=== PATIENT | female | born 1955 | race Hispanic/Latino ===

== ENCOUNTER → 2024-04-13 | Outpatient (CLI) | payer OTHER ==
[2024-04-13 16:49] LABS: ALBUMIN 3.9 g/dL (3.5-5.0); BILIRUBIN,TOTAL 0.2 mg/dL (0.2-1.0); CREATININE 0.7 mg/dL (0.5-1.0); TOTAL PROTEIN, SERUM 7.9 g/dL (6.0-8.3)
== END | disposition home or self-care (01) ==
LOC: LAB 15:40
PROVIDERS: ATTEND Student in an Organized Health Care Education/Training Program
DX: Z01.812 Encounter for preprocedural laboratory examination (principal); I10 Essential (primary) hypertension
CPT/HCPCS: 36415; 80053

== ENCOUNTER → 2024-04-17 | Outpatient (CLI) | payer OTHER, MEDICARE ==
[~2024-04-17] MED LIST: IOHEXOL 350 MG/ML 100ML INFUS..BTL IV ONE; metoPROLOL tartRATE 1 MG/ML 5ML VIAL IV ONE
== END | disposition home or self-care (01) ==
LOC: RAH 09:05
PROVIDERS: ATTEND Student in an Organized Health Care Education/Training Program
DX: I25.10 Atherosclerotic heart disease of native coronary artery without angina pectoris (principal); M47.815 Spondylosis without myelopathy or radiculopathy, thoracolumbar region; R07.9 Chest pain, unspecified
CPT/HCPCS: 75574; J3490; Q9967

== ENCOUNTER → 2024-04-18 | Outpatient (CLI) | payer OTHER, MEDICARE | END | disposition home or self-care (01) | LOC: SHCH 08:50 | PROVIDERS: ATTEND Student in an Organized Health Care Education/Training Program | DX: I73.9 Peripheral vascular disease, unspecified (principal) | CPT/HCPCS: 93925 ==

== ENCOUNTER → 2024-05-11 | Outpatient (CLI) | payer OTHER, MEDICARE | END | disposition home or self-care (01) | LOC: SHCH 14:52 | PROVIDERS: ATTEND Student in an Organized Health Care Education/Training Program | DX: R06.09 Other forms of dyspnea (principal); I25.10 Atherosclerotic heart disease of native coronary artery without angina pectoris | CPT/HCPCS: 93306 ==

== ENCOUNTER 2024-05-28 05:48 | Day surgery (SDC) | payer OTHER, MEDICARE ==
[2024-05-26 10:28] LABS: BASOPHILS # (AUTO) 0.09 K/uL (0.00-0.20); BASOPHILS % (AUTO) 0.9 % (0.0-5.0); EOSINOPHILS # (AUTO) 0.17 K/uL (0.00-0.70); EOSINOPHILS % (AUTO) 1.8 % (0.0-8.0); HEMATOCRIT 37.7 % (36-48); IMMATURE GRANULOCYTE ABSOLUTE 0.03 K/uL (0-1); LYMPHOCYTES # (AUTO) 2.9 K/uL (1.0-4.8); LYMPHOCYTES % (AUTO) 29.9 % (21.0-51.0); MEAN CORPUSCULAR HEMOGLOBIN 23.3 pg (27.0-33.0); MEAN CORPUSCULAR HGB CONC 30.5 g/dL (32.0-36.0); MEAN CORPUSCULAR VOLUME 76.3 fL (79-99); MONOCYTES # (AUTO) 0.6 K/uL (0.1-1.0); MONOCYTES % (AUTO) 5.9 % (3.0-13.0); NEUTROPHILS # (AUTO) 5.8 K/uL (1.8-7.7); NEUTROPHILS % (AUTO) 61.2 % (40.0-77.0); PLATELET COUNT (AUTO) 238 K/uL (130-400); RED BLOOD CELL COUNT(AUTO) 4.94 MIL/uL (4.00-5.50); RED CELL DISTRIBUTION WIDTH 15.8 % (11.0-15.5); WHITE BLOOD COUNT (AUTO) 9.5 K/uL (4.8-10.8)
[2024-05-26 10:38] LABS: INR 0.99 (0.85-1.15); PROTHROMBIN TIME 10.7 SEC (9.6-11.6)
[2024-05-26 10:39] LABS: PARTIAL THROMBOPLASTIN TIME 25.2 SEC (26.3-35.5)
[2024-05-26 10:40] LABS: CREATININE 0.6 mg/dL (0.5-1.0); POTASSIUM 4.2 mmol/L (3.5-5.1)
[2024-05-26 10:46] VITALS: BP 194/78; PULSE 98; RESP 18; TEMP 97.7
--- NOTE | 2024-05-26 11:10 | EKG ---
[facility] Test Date: 2024-05-26 Test Time: 11:01:59 Pat Name: MIGUE RUIZ Department: [facility] Room: [facility] Gender: F Public Relations Coordinator: [id number] : 1955 Requested By: TYRELL SOTO Order Number: [id number] Reading MD: Adelaida Soto Measurements Intervals [place] Rate: 92 P: 52 TX: 178 QRS: 47 QRSD: 94 T: 12 QT: 386 QTc: 479 Interpretive Statements Sinus rhythm Atrial premature complexes Low voltage, precordial leads No previous ECG available for comparison Electronically Signed On 05-28-2024 17:34:12 ASSISTANT ELEMENTARY TEACHER by Adelaida Soto Please click the below link to view image of tracing.
[2024-05-26 11:25] LABS: ADD UA MICROSCOPIC YES; APPEARANCE,URINE CLEAR (CLEAR); BILIRUBIN,URINE NEGATIVE (NEGATIVE); COLOR,URINE LIGHT-YELLOW (YELLOW); GLUCOSE, URINE (UA) >=1000 mg/dL (NEGATIVE); KETONES,URINE NEGATIVE (NEGATIVE); LEUKOCYTE ESTERASE ,URINE NEGATIVE Leu/uL (NEGATIVE); NITRATE,URINE NEGATIVE (NEGATIVE); OCCULT BLOOD,URINE NEGATIVE (NEGATIVE); PH,URINE 5.5 (5.0-8.0); PROTEIN,URINE NEGATIVE (NEGATIVE); UROBILINOGEN,URINE 0.2 mg/dL (0.2-1.0)
[2024-05-26 11:26] LABS: MUCUS,URINE RARE LPF (None Seen); RBC,URINE 0-1 /HPF (0-1); SQUAMOUS EPITHELIAL CELL,UR RARE /HPF (0-2)
[2024-05-26 11:35] LABS: B-TYPE NATRIURETIC PEPTIDE 22 pg/mL (0-100)
--- NOTE | 2024-05-26 12:11 | HMCIMG ---
CHEST 1VW HISTORY: Preop COMPARISON: None FINDINGS: A frontal projection of the chest was obtained. No acute pulmonary infiltrates is seen. The heart is borderline enlarged. Aortic calcifications are seen. Degenerative changes are seen. IMPRESSION: 1. No acute pulmonary infiltrate is seen.
[~2024-05-28] VITALS: Ht 154.9 cm; Wt 91.5 kg
[2024-05-28] VITALS (16 sets, daily range): BP systolic 128–159; BP diastolic 58–89; PULSE 76–91; RESP 16–18; TEMP 97.2–98.2
[~2024-05-28 05:48] MED LIST changes: +AMLO-257 PO; +ASPI-1197 PO; +CLOP75TA32 PO; +EMPA1TAB32 PO; +GABA-529 PO; +GLIP2.5T2 PO; +INSU3INS3 SQ; -IOHEXOL 350 MG/ML 100ML INFUS..BTL IV ONE; +LEVO300T4 PO; +ROSU10TA72 PO; +TELM40TA8 PO; -metoPROLOL tartRATE 1 MG/ML 5ML VIAL IV ONE
[2024-05-28] MEDS: 0.9%NACL 1000ML 1,000 ML IV ONE (06:49)
[2024-05-28] MEDS ORDERED: LIDOCAINE HCL 400MG/20ML VIAL ONE (07:12)
[2024-05-28] MEDS ORDERED: HEParin 10,000 UNIT/10ML (1,000 UNIT/ML) VIAL ONE (07:12)
[2024-05-28] MEDS ORDERED: IOHEXOL 350 MG/ML 100ML INFUS..BTL IV ONE (07:12)
[2024-05-28] MEDS ORDERED: HEParin-NS 1,000 UNIT/500 ML 1,000 ML IV ONE (07:12)
[2024-05-28] MEDS ORDERED: VERAPAMIL HCL 2.5 MG/ML VIAL ONE (07:12)
[2024-05-28] MEDS ORDERED: NITROGLYCERIN 50MG VIAL ONE (07:13)
[2024-05-28] MEDS ORDERED: MIDAZOLAM HCL 1 MG/ML 2ML VIAL ONE ×2 (07:28→07:49)
[2024-05-28] MEDS ORDERED: FENTanyl CITRate PF 50 MCG/1 ML 2ML VIAL ONE (07:28)
[2024-05-28] MEDS ORDERED: HEParin-NS 1,000 UNIT/500 ML 500 ML IV ONE (08:30)
[2024-05-28] MEDS ORDERED: GLUCAGON 1MG KIT 1 MG ML IM PRN (09:00)
[2024-05-28] MEDS ORDERED: 0.9%NACL 1000ML 1,000 ML IV SCH (09:00)
[2024-05-28] MEDS ORDERED: DEXTROSE 50%-WATER 50 ML DISP.SYRIN IV PRN (09:00)
--- NOTE | 2024-05-28 09:13 | PRN ---
PROCEDURE REPORT DATE OF PROCEDURE: May 28, 2024 BAREBACK RIDER: [ Tyrell dennis MD] PROCEDURE PERFORMED: Conscious sedation Ultrasound guided right radial artery access Selective left coronary artery angiogram Selective right coronary artery angiogram Left heart catheterization IVUS of the LAD and left main TR band 13 jeana over right radial artery INDICATION: Abnormal coronary CTA DESCRIPTION OF PROCEDURE: After informed consent was obtained, the patient was prepped and draped in the usual sterile fashion. A 6 [place] arterial sheath was inserted in the right radial artery using ultrasound guidance with first pass wall puncture. The arterial sheath was aspirated and flushed. A 6 [place] JL 3.5 was then advanced to the ascending aorta over an exchange length J-tip guidewire, was aspirated and flushed, and was used for selective coronary angiograms in multiple obliquities. A JR-4 was advanced in a similar fashion to the ascending aorta over the J-tipped guidewire and was used for selective right coronary angiograms in multiple oblique views with findings as outlined below. The JR-4 catheter advanced into the LV and pressures were obtained with a pull-back across the aortic valve. Following review of all the angiographic images decision was made to proceed with IVUS imaging of the distal left main and prox to mid LAD. We exchanged the diagnostic catheters were six [place] XB three guide catheter which was advanced over the wire and similar fashion used to engage the left main coronary artery. [place] [address] units of IV heparin and falling therapeutic ACT we advanced a Prowater into the distal LAD under fluoroscopic guidance. We then proceeded with IVUS imaging of the mid prox LAD extending into the left main. We noticed 60% stenosis of the distal left main by IVUS and given these findings the decision was made to terminate the procedure and consult CV surgery for CABG evaluation. All wires and catheters removed from the body final angiographic images revealed no dissections or perforations. A TR band was placed over right radial artery. Patient tolerated procedure well with no postprocedure complications transferred to laboratory animal care veterinarian holding in stable condition FLUOROSCOPY TIME: 17.8 min LEFT HEART HEMODYNAMICS: LVEDP 21 mm Hg and no gradient Ao CORONARY ANGIOGRAM: LEFT MAIN: Distal left main 60% stenosis by IVUS. Trifurcates into the LAD left circ and a small approximately 1 mm ramus LEFT ANTERIOR DESCENDING: Large vessel giving rise to two Diagonal branches. Ostial-prox 80% stenosis, 80% stenosis in the mid segment followed by a 60% distal stenosis. D1 is large with 90% ostial to prox stenosis LEFT CIRCUMFLEX: Large and gives rise to one large OM branch. Left circ is widely patent. OM1 is large with 80% mid stenosis RIGHT CORONARY ARTERY: Large, dominant vessel giving rise to PDA and PL branches. 0% stenosis. Provides [id number] collaterals to the LAD HEMOSTASIS: TR band 12 jeana over right radial artery INTERVENTIONS: IVUS of the LAD and left main. COMPLICATIONS: None FINDINGS: Normal coronary anatomy and severe multivessel CAD with distal left main involvement (60% distal left main stenosis by IVUS) ESTIMATED BLOOD LOSS: 5 cc RECOMMENDATIONS/INSTRUCTIONS: Aggressive risk factor modification and optimization of GTT Consult CV surgery for CABG evaluation versus high-risk PCI as an outpatient. CONTRAST DELIVERED TO PATIENT (mL): 105cc TYRELL Torrez MD, MD May 28, 2024 09:13
== END 2024-05-28 13:00 | disposition home or self-care (01) ==
LOC: DAH 05:48
PROVIDERS: ATTEND Student in an Organized Health Care Education/Training Program
DX: R93.1 Abnormal findings on diagnostic imaging of heart and coronary circulation (principal); I25.118 Atherosclerotic heart disease of native coronary artery with other forms of angina pectoris; I49.1 Atrial premature depolarization; I10 Essential (primary) hypertension; E78.2 Mixed hyperlipidemia; E03.9 Hypothyroidism, unspecified; E11.51 Type 2 diabetes mellitus with diabetic peripheral angiopathy without gangrene; M53.86 Other specified dorsopathies, lumbar region; Z98.890 Other specified postprocedural states; Z79.82 Long term (current) use of aspirin; Z79.4 Long term (current) use of insulin; Z98.891 History of uterine scar from previous surgery; Z83.3 Family history of diabetes mellitus; Z82.3 Family history of stroke; Z82.49 Family history of ischemic heart disease and other diseases of the circulatory system; Z79.01 Long term (current) use of anticoagulants; Z98.1 Arthrodesis status; Z79.899 Other long term (current) drug therapy
CPT/HCPCS: 80048 ×2; 83880 ×2; 85025 ×2; 85610; 85730; 81001; 36415 ×3; 71045; 93005 ×2; 92978; 92979; 93458; 99284; 82550; 83735; 84484; 85347; 82948; 70450; A4223 ×3; C1769 ×5; C1894; A4649; C1887; C1753; Q9965 ×2; J3010; J3490 ×3; J7030; J1644 ×3; J2250 ×2; Q9967; A4215; A4222; A4221; A4663; A4216; A4606; 99156; 99157

== ENCOUNTER 2024-05-28 18:19 | Emergency (ER) | payer OTHER, MEDICARE ==
[~2024-05-28] VITALS: Ht 152.4 cm; Wt 72.6 kg
--- NOTE | 2024-05-28 19:20 | NUR ---
PT JUST PLACED IN ED BED 9
--- NOTE | 2024-05-28 19:23 | HMCIMG ---
CT HEAD/BRAIN W/O CONTRAST HISTORY: Confusion COMPARISON: None TECHNIQUE: Multiple sequential axial images of the head were obtained from the base of the skull through vertex. Patient was not given contrast through intravenous route. FINDINGS: The ventricles and extraventricular CSF spaces are nondilated for patient's age. There is no midline shift, mass effect or herniation. No acute intracranial bleed is seen. Visualized portion of the paranasal sinuses are grossly within normal limits. IMPRESSION: 1. No acute intracranial bleed is seen. CT was performed with one or more following dose reduction techniques: automated exposure control, adjustment of the mA and kv according to patient's size, or use of a iterative reconstruction technique.
[2024-05-28 19:51] LABS: BASOPHILS # (AUTO) 0.07 K/uL (0.00-0.20); BASOPHILS % (AUTO) 0.7 % (0.0-5.0); EOSINOPHILS # (AUTO) 0.24 K/uL (0.00-0.70); EOSINOPHILS % (AUTO) 2.3 % (0.0-8.0); HEMATOCRIT 35.5 % (36-48); IMMATURE GRANULOCYTE ABSOLUTE 0.03 K/uL (0-1); LYMPHOCYTES # (AUTO) 2.9 K/uL (1.0-4.8); LYMPHOCYTES % (AUTO) 27.6 % (21.0-51.0); MEAN CORPUSCULAR HEMOGLOBIN 23.5 pg (27.0-33.0); MEAN CORPUSCULAR HGB CONC 31.3 g/dL (32.0-36.0); MEAN CORPUSCULAR VOLUME 75.2 fL (79-99); MONOCYTES # (AUTO) 0.6 K/uL (0.1-1.0); MONOCYTES % (AUTO) 6.1 % (3.0-13.0); NEUTROPHILS # (AUTO) 6.6 K/uL (1.8-7.7); PLATELET COUNT (AUTO) 237 K/uL (130-400); RED BLOOD CELL COUNT(AUTO) 4.72 MIL/uL (4.00-5.50); RED CELL DISTRIBUTION WIDTH 15.4 % (11.0-15.5); WHITE BLOOD COUNT (AUTO) 10.4 K/uL (4.8-10.8)
[2024-05-28 20:01] LABS: CREATININE 0.6 mg/dL (0.5-1.0); POTASSIUM 3.8 mmol/L (3.5-5.1)
[2024-05-28 20:11] VITALS: TEMP 97.7
--- NOTE | 2024-05-28 20:15 | NUR ---
NIH SCALE ASSESSMENT DONE AT THIS TIME. NIH 0. NO FACIAL DROOP, NUMBNESS, DRIFT, OR ANY SIGNS OF STROKE AT THIS TIME.
[2024-05-28 20:23] LABS: B-TYPE NATRIURETIC PEPTIDE 23 pg/mL (0-100)
--- NOTE | 2024-05-28 21:06 | ERN ---
General Chief Complaint: Altered Mental Status Stated Complaint: DISORIENTED,UNABLE TO WRITE Time Seen by MD: 18:19 Time Seen by Midlevel: 18:19 Source: patient History of Present Illness Initial Comments This is a 69-year-old female with a past medical history of hypertension, coronary artery disease and type 2 diabetes who presents to the [facility] for evaluation of confusion. According to both the patient and her patient had an episode where she would repeat her words. She does report having a procedure earlier this morning here in our hospital and was administered fentanyl and Versed for a conscious sedation. She is unsure if this was a side effect from the medication but wanted further evaluation. On arrival she reports feeling completely back to her baseline. She specifically denies any focal weakness, numbness, or any other symptoms at this time. Allergies: Coded Allergies: No Known Drug Allergies (Unverified Allergy, Unknown, 05/26/24) Home Meds Reported Medications Glipizide (Glipizide ER) 2.5 Mg Tab.er.24, 2.5 MG PO BID 05/26/24 Aspirin (Aspirin) 81 Mg Tab.chew, 1 TAB PO DAILY for 30 Days, #30 TAB 0 Refills 05/26/24 Clopidogrel Bisulfate (Clopidogrel) 75 Mg Tablet, 1 TAB PO AM for 30 Days, #30 TAB 0 Refills 05/26/24 Amlodipine Besylate (Amlodipine Besylate) 5 Mg Tablet, 1 TAB PO AM for 30 Days, #30 TAB 0 Refills 05/26/24 Empaglifloz/Linaglip/Metformin (Trijardy Xr 12.5-2.5-1,000 mg) 12.5 Mg-2.5 Mg- 1,000 Mg Tab.bp.24h, 1 EACH PO BID 05/26/24 Rosuvastatin Calcium (Rosuvastatin Calcium) 10 Mg Tablet, 20 MG PO AM, TAB 05/26/24 Telmisartan (Telmisartan) 40 Mg Tablet, 1 TAB PO AM for 30 Days, #30 TAB 0 Refills 05/26/24 Gabapentin (Gabapentin) 100 Mg Capsule, 1 CAP PO AM for 30 Days, #90 CAP 0 Refills 05/26/24 Insulin Glargine,Hum.rec.anlog (Lantus Solostar) 100 Unit/Ml (3 Ml) Insuln.pen, 10 UNIT SQ HS for 30 Days, #5 ML 0 Refills 05/26/24 Insulin Glargine,Hum.rec.anlog (Lantus Solostar) 100 Unit/Ml (3 Ml) Insuln.pen, 20 UNIT SQ AM for 30 Days, ML 0 Refills 05/26/24 Levothyroxine Sodium (Synthroid) 300 Mcg Tablet, 1 TAB PO AM for 30 Days, #30 TAB 0 Refills 05/26/24 Past Medical History Past Medical History: Diabetes-Type II, High Cholesterol, Hypertension Past Surgical History: None ROS Dictation CONSTITUTIONAL: Negative except for HPI HEAD/FACE: Negative except for HPI EENT: Negative except for HPI RESPIRATORY: Negative except for HPI GASTROINTESTINAL/ABDOMINAL: Negative except for HPI GENITOURINARY: Negative except for HPI MUSCULOSKELETAL: Negative except for HPI INTEGUMENTARY: Negative except for HPI NEUROLOGICAL/PSYCH: Negative except for HPI HEMATOLOGIC/LYMPHATIC: Negative except for HPI All Systems Negative, Except as noted above. 13 point review of systems assessed and all negative except for above. Physical Exam Physical Exam Dictation Vital Signs reviewed General Appearance: Alert, oriented x 3, no acute distress, well developed, nourished. Head and Face: non-traumatic. Eyes: PERRL, pink conjunctivas, eyelid no trauma, anterior chamber with arcus senilis. Ears: Pinnas intact and no signs of trauma or erythema ear canals clear and no discharge TM no erythema Nose: No discharge, no bleeding. Oropharynx: Mouth normal, tongue pink, pharynx clear,no erythema, tonsils no exudates, no abscesses noted, mucous membrane moist Neck: Supple, non-tender, no thyromegaly, no masses, no JVD, no bruits Breast:Deferred Chest:No tenderness, no crepitus, no paradoxical movement, no retractions Lungs:Clear, well-ventilated, symmetric, no rales, no wheezing, no rhonchi, no stridor, good breath sounds bilaterally Heart: Regular rate, regular rhythm, no murmur, no gallops Vascular: no peripheral edema, Abdomen: Soft, positive bowel sounds, nondistended, no guarding, nontender, no rebound, no masses no hepatomegaly, no splenomegaly, no Iniguez's sign, no hernias. Rectal: Deferred Genital: Deferred Neurological: Normal speech, motor function intact, sensory function intact Musculoskeletal: Neck nontender, full range of motion, back nontender, full range of motion, Extremities: nontender, full range of motion Skin: Color pink, dry, no turgor, no rash, no lacerations, no abrasions, no co ntusions. Lymphatic: Deferred Results Laboratory and Microbiology Lab and Micro Result Laboratory Tests Test 05/28/24 19:33 White Blood Count 10.4 K/uL (4.8-10.8) Red Blood Count 4.72 MIL/uL (4.00-5.50) Hemoglobin 11.1 g/dL (12.0-16.0) L Hematocrit 35.5 % (36-48) L Mean Corpuscular Volume 75.2 fL (79-99) L Mean Corpuscular Hemoglobin 23.5 pg (27.0-33.0) L Mean Corpuscular Hemoglobin Concent 31.3 g/dL (32.0-36.0) L Red Cell Distribution Width 15.4 % (11.0-15.5) Platelet Count 237 K/uL (130-400) Mean Platelet Volume 13.0 fL (7.5-10.5) H Immature Granulocyte % (Auto) 0.3 % (0-1) Neutrophils (%) (Auto) 63.0 % (40.0-77.0) Lymphocytes (%) (Auto) 27.6 % (21.0-51.0) Monocytes (%) (Auto) 6.1 % (3.0-13.0) Eosinophils (%) (Auto) 2.3 % (0.0-8.0) Basophils (%) (Auto) 0.7 % (0.0-5.0) Neutrophils # (Auto) 6.6 K/uL (1.8-7.7) Lymphocytes # (Auto) 2.9 K/uL (1.0-4.8) Monocytes # (Auto) 0.6 K/uL (0.1-1.0) Eosinophils # (Auto) 0.24 K/uL (0.00-0.70) Basophils # (Auto) 0.07 K/uL (0.00-0.20) Absolute Immature Granulocyte (auto 0.03 K/uL (0-1) Nucleated Red Blood Cells 0.0 % (0.0-0.19) Sodium Level 140 mmol/L (136-145) Potassium Level 3.8 mmol/L (3.5-5.1) Chloride Level 101 mmol/L (101-111) Carbon Dioxide Level 31 mmol/L (21-32) Blood Urea Nitrogen 12 mg/dL (7-18) Creatinine 0.6 mg/dL (0.5-1.0) Glomerular Filtration Rate Calc 97 mL/min (>90) Random Glucose 224 mg/dL (70-105) H Total Calcium 8.6 mg/dL (8.5-10.1) Magnesium Level 2.00 mg/dL (1.80-2.40) Total Creatine Kinase 184 U/L (21-232) Troponin I High Sensitivity 26 ng/L (4-50) B-Type Natriuretic Peptide 23 pg/mL (0-100) Labs Reviewed?: Yes MDM MDM: This is a 69-year-old female with a past medical history of hypertension, coronary artery disease and type 2 diabetes who presents to the emergency department for evaluation of confusion. According to both the patient and her patient had an episode where she would repeat her words. She does report having a procedure earlier this morning here in our hospital and was administered fentanyl and Versed for a conscious sedation. She is unsure if this was a side effect from the medication but wanted further evaluation. On arrival she reports feeling completely back to her baseline. She specifically denies any focal weakness, numbness, or any other symptoms at this time. On physical examination patient is alert and oriented x4. She was GCS of 15. NIH of 0. She is answering all questions appropriately. She is ambulatory without assistance with a normal gait. She was her neurological examination is unremarkable. Symptoms most likely related to the medication administer to her earlier this morning however a full workup was obtained to rule out any acute abnormalities. Her CBC shows no leukocytosis. Her hemoglobin is stable. Her chemistries unremarkable. Her cardiac enzymes are negative. Her CT scan of the head does not show any acute abnormalities. Patient was observed in the ER for over 2 hours and has remained stable and asymptomatic. On repeat examination patient is sleeping comfortably in bed in no acute distress. Her repeat examination is unremarkable. Her neurological examination on her repeat examination is normal. Patient will be discharged home with supportive management. She was advised to follow up with your PCP in 2-3 days for repeat evaluation. Differential diagnosis: Electrolyte abnormality, intracranial bleed, medication reaction There are no social concerns with this patient. Prescription drug management Prescriptions will include: None Medical management and examination interpretation discussions were had by me with other qualified healthcare professionals as indicated for the patient's care. ED Course Orders Procedure Category Date Status Time 12 Lead Ekg Tracing- EKG 05/28/24 Logged Technical 18:36 B-Type Natriuretic LAB 05/28/24 Complete Peptide 18:36 Cbc With Differential LAB 05/28/24 Complete 18:36 Basic Metabolic Panel LAB 05/28/24 Complete 18:36 Creatine Kinase, Total LAB 05/28/24 Complete 18:36 Urinalysis Profile LAB 05/28/24 Logged 18:36 Troponin I High LAB 05/28/24 Complete Sensitivity 18:36 Magnesium LAB 05/28/24 Complete 18:36 Ct Head/Brain W/O CT 05/28/24 Resulted Contrast 18:36 Vital Signs Date Time Temp Pulse Resp B/P (MAP) Pulse Ox O2 Delivery O2 Flow Rate FiO2 05/28/24 20:11 97.7 64 19 128/56 97 Room Air* 0 21 05/28/24 18:35 98.6 96 18 168/80 98 [place] [address] IMAGING REPORT Signed PATIENT: MIGUE RUIZ MR#: [id number] : 1955 SEX: F AGE: 69 LOCATION: [facility] ORDER 36 STATUS: REG ER REPORT#: [id number] SERVICE 35 REASON: ams ORDERING PHYSICIAN: EDISON SANCHEZ PROCEDURE: HEAD WO - CT HEAD/BRAIN W/O CONTRAST CT HEAD/BRAIN W/O CONTRAST HISTORY: Confusion COMPARISON: None TECHNIQUE: Multiple sequential axial images of the head were obtained from the base of the skull through vertex. Patient was not given contrast through intravenous route. FINDINGS: The ventricles and extraventricular CSF spaces are nondilated for patient's age. There is no midline shift, mass effect or herniation. No acute intracranial bleed is seen. Visualized portion of the paranasal sinuses are grossly within normal limits. IMPRESSION: 1. No acute intracranial bleed is seen. CT was performed with one or more following dose reduction techniques: automated exposure control, adjustment of the mA and kv according to patient's size, or use of a iterative reconstruction technique. DICTATED BY: MADHU LAZARO MD DATE: 05/28/241919 ELECTRONICALLY SIGNED BY: MADHU LAZARO MD DATE: 05/28/241922 DX & DISP Disposition: Discharge Departure Impression: Primary Impression: Medication side effect Condition: Stable Additional Instructions: Your blood work today is unremarkable. Your CT scan of the brain is negative for any acute abnormality. Your brief symptoms are most likely caused by the medication you were adm inistered earlier today for your procedure. Follow up with your primary care doctor in 2-3 days for repeat evaluation. Return to the ER if you develop any new or worsening symptoms. Referrals: ZEUS TRONCOSO JR, MD (PCP) Time of Disposition: 21:06 I have reviewed the case, and I agree with, Diagnosis and Plan I performed the substantive portion of the visit. I have reviewed and personally made and approve the management plan that is documented in the note by myself or the CHANTEL. I acknowledge for responsibility for the patient's management plan. EDISON SANCHEZ May 28, 2024 21:06
[2024-05-28 21:20] VITALS: BP 132/61; PULSE 87; RESP 16; O2SAT 97
--- NOTE | 2024-05-29 06:45 | EKG ---
[facility] Test Date: 2024-05-28 Test Time: 18:52:11 Pat Name: MIGUE RUIZ Department: [facility] Room: Gender: F Drum Maker: [id number] : 1955 Requested By: EDISON SANCHEZ Order Number: [id number] Reading MD: Aron Rojas Measurements Intervals [place] Rate: 91 P: 30 [place]: 198 QRS: 32 QRSD: 86 T: -4 QT: 386 QTc: 475 Interpretive Statements Sinus rhythm Borderline T abnormalities, diffuse leads Compared to ECG 05/26/2024 11:01:59 T-wave abnormality now present Atrial premature complex(es) no longer present Electronically Signed On 05-29-2024 16:15:24 BOTTLE CAPPING MACHINE OPERATOR by Aron Rojas Please click the below link to view image of tracing.
== END 2024-05-28 21:30 | disposition home or self-care (01) ==
LOC: EDH 18:19
DX: R41.0 Disorientation, unspecified (principal); T40.415A Adverse effect of fentanyl or fentanyl analogs, initial encounter; T42.4X5A Adverse effect of benzodiazepines, initial encounter; Y92.89 Other specified places as the place of occurrence of the external cause; E11.9 Type 2 diabetes mellitus without complications; E78.00 Pure hypercholesterolemia, unspecified; I10 Essential (primary) hypertension; Z79.82 Long term (current) use of aspirin; Z79.84 Long term (current) use of oral hypoglycemic drugs
CPT/HCPCS: 36415; 70450; 80048; 82550; 83735; 83880; 84484; 85025; 93005; 99284

== ENCOUNTER → 2024-06-12 | Outpatient (CLI) | payer OTHER, MEDICARE | END | disposition home or self-care (01) | LOC: SHCH 08:33 | PROVIDERS: ATTEND Student in an Organized Health Care Education/Training Program | DX: I73.9 Peripheral vascular disease, unspecified (principal) | CPT/HCPCS: 93925 ==